=== PATIENT | female | born 1960 | race Caucasian/White ===

== ENCOUNTER 2023-05-19 15:56 | Outpatient (CLI) | payer OTHER, SELFPAY | END 2023-05-19 15:57 | disposition home or self-care (01) | PROVIDERS: PCP Family Medicine; Visit Provider Family Medicine | DX: Z01.419 Encounter for gynecological examination (general) (routine) without abnormal findings (principal); I10 Essential (primary) hypertension; R73.03 Prediabetes; R53.83 Other fatigue; E66.9 Obesity, unspecified; Z13.6 Encounter for screening for cardiovascular disorders | CPT/HCPCS: 80053; 80061; 84443 ==

== ENCOUNTER 2023-05-27 09:38 | Outpatient (CLI) | payer OTHER, SELFPAY ==
--- NOTE | 2023-05-27 09:45 | CRLHL7_ITS ---
For Patients: As a result of the Century Cures Act, medical imaging exams and procedure reports are released immediately into your electronic medical record. You may view this report before your referring provider. If you have questions, please contact your health care provider. BILATERAL SCREENING MAMMOGRAM WITH COMPUTER-AIDED DETECTION AND TOMOSYNTHESIS TECHNIQUE: CC and MLO views were obtained. These mammographic images have been obtained using full-field digital technique. These mammographic images were interpreted with the benefit of computer-aided detection. Breast Tomosynthesis was used in this interpretation. COMPARISON FILM: 04/23/22. FINDINGS: There are scattered areas of fibroglandular density IMPRESSION: There is no radiographic evidence for malignancy. ASSESSMENT: BI-RADS Category 1: Negative RECOMMENDATION: Routine screening mammogram in 1 year. A lay language report of this examination will be provided to the patient. Scott Garnett M.D. Diagnostic Radiologist [email or web address] ANSELMO/Dictated by: Scott Garnett MD @ 05/31/2023 9:13:00 AM (Electronically Signed)
== END 2023-05-27 09:39 | disposition home or self-care (01) ==
LOC: MAMMO 09:39
PROVIDERS: PCP Family Medicine; Visit Provider Physician Assistant
DX: Z12.31 Encounter for screening mammogram for malignant neoplasm of breast (principal)
CPT/HCPCS: 77063; 77067

== ENCOUNTER 2023-06-15 20:59 | Outpatient (CLI) | payer OTHER, SELFPAY ==
--- OUTSIDE RECORDS SUMMARY | 2023-06-15 21:01 | XMS_ITS | Encounter Summary ---
Author Name Unknown Organization [facility] Address [address] [place] [address] Care Team Providers Care Trolley Operator Name Role Phone Pcp, Pt Declines MD Primary Care Provider [phone] Reason for Visit * Procedure/Equipment (Routine) - Incomplete Specialty Diagnoses / Procedures Referred By Shauna agrawal Referred To Contact Procedures Foreign Image(S) XR Knee Rt Provider, Foreign Images [address] [place] [address] Referral ID Status Reason Start Date Expiration Date V isits Requested Visits Authorized [id number] Incomplete 05/06/2023 08/04/2024 1 1 Encounter Details Date Type Department Care Team Description 03/15/2023 Ancillary Procedure [facility] [address] [place] [address] Provider, Foreign Images [address] [place] [address] Social History Tobacco Use Types Packs/Day Years Used Date Smoking Tobacco: Never Alcohol Use Standard Drinks/Week Comments Yes 6 (1 standard drink = 0.6 oz pur e alcohol) Sex and Gender Information Value Date Recorded Sex Assigned at Not on file Gender Identity Not on file Sexual Orientation Not on file documented as of this encounter Plan of Treatment Not on file documented as of this encounter Procedures Procedure Name Priority Date/Time Associated Diagnosis Comments FOREIGN IMAGE(S) XR KNEE RT Routine 03/15/2023 12:00 AM CDT documented in this encounter Results * Foreign Image(S) XR Knee Rt (03/15/2023 12:00 AM CDT) Narrative POCT - 05/06/2023 10:29 AM EXPERIENCE DESIGN DIRECTOR These outside images have been uploaded into PACS. If the results were provided, they will be located in the patient's chart under the Media or Imaging tab. Foreign Images Provider RAD NON-REPORTAB LES POCT documented in this encounter Visit Diagnoses Not on filedocumented in this encounter Care Teams Trolley Operator Relationship Specialty Start Date End Date Pcp, [place] [address] PCP - General 12/05/19 05/04/23 documented as of this encounter
--- OUTSIDE RECORDS SUMMARY | 2023-06-15 21:01 | XMS_ITS | Clinical Summary ---
Author Name Unknown Organization [facility] Address [address] [place] [address] Care Team Providers Care Regional Economic Liaison Name Role Phone Clinician, Not Found MD Primary Care Provider Un available Source Comments You are receiving this document as you are listed as the primary care provider,follow-up provider, or the patient has been referred to you for consultation.This is in compliance with the Medicare and[facility] EHR Incentive Program,which states Providers who transition their patient to another setting of careor provider of care or refers their patient to another provider of care shouldprovide summary care record for each transition of care or referral. [facility] Allergies Active Allergy Reactions Criticality Noted Date Comments Codeine 11/29/2019 Erythromycin Hives High 11/29/2019 Medications Medication Sig Dispensed Refills Start Date End Date Status citalopram (CELEXA) 20 MG tablet 30 mg. 0 09/11/2019 Active meclizine (ANTIVERT) 25 MG tablet Take 25 mg by mouth three times a day as needed. 0 10/09/2019 Active ondansetron (ZOFRAN) 4 MG tablet Take 4 mg by mouth every 8 hours as needed. for nausea 0 10/09/2019 Active gabapentin (NEURONTIN) 100 MG capsule Take by mouth. 0 02/08/2022 Active Active Problems No known active problems Encounters Date Type Department Care Team Description 06/10/2023 1:00 PM OYSTER SORTER Ancillary Procedure [place] [facility] [place] [address] [address] [address] [place] [address] Lubna Penny MD Left knee pain, unspecified chronicity 06/10/2023 12:40 PM OYSTER SORTER Office Visit [facility] [address] [place] [address] Lubna Penny MD Patellofemoral arthritis (Primary Dx); Left knee pain, unspecified chronicity 03/15/2023 Ancillary Procedure Radiology PACS [address] [place] [address] Provider, Foreign Images from Last 3 Months Social History Tobacco Use Types Packs/Day Years Used Date Smoking Tobacco: Never Alcohol Use Standard Drinks/Week Comments Yes 6 (1 standard drink = 0.6 oz pur e alcohol) Sex and Gender Information Value Date Recorded Sex Assigned at Not on file Gender Identity Not on file Sexual Orientation Not on file Last Filed Vital Signs Vital Sign Reading Time Taken Comments Blood Pressure - - Pulse - - Temperature 36.8 ??C (98.3 ??F) 11/29/2019 3:53 PM CD T Respiratory Rate - - Oxygen Saturation - - Inhaled Oxygen Concentration - - Weight 103.9 kg (229 lb) 06/10/2023 1:07 PM OYSTER SORTER Height 170.2 cm (5' 7) 06/10/2023 1:07 PM OYSTER SORTER Body Mass Index 35.87 06/10/2023 1:07 PM OYSTER SORTER Plan of Treatment Health Maintenance Due Date Last Done Comments Cervical Cancer Screening Due 1962 Colon Cancer Screening Plan Due 1962 Diabetes Screening- (based on age and BMI) 1962 Hep C Screening (Preventive Services) 1960 Mammogram 1962 COVID-19 Vaccine (#1) 04/26/1963 HIV Screening (Preventive Services) 1978 Adult Preventive Visit 1980 Cholesterol 10/25/2007 DTaP/Tdap/Td (3 - Tdap) 01/06/2027 01/07/20 17, 12/21/2006, 11/22/1997 Zoster/Shingles Completed 03/12/2022, 12/10/2021 Influenza Completed 05/19/2023, 12/2021, 03/12/2022, Additional history exists HepA Aged Out No longer eligi ble based on patient's age to complete this topic HepB Aged Out No longer eligi ble based on patient's age to complete this topic Hib Aged Out No longer eligi ble based on patient's age to complete this topic IPV (Polio) Aged Out No longer eligi ble based on patient's age to complete this topic MCV4 Aged Out No longer eligi ble based on patient's age to complete this topic Pneumococcal Aged Out No longer eligi ble based on patient's age to complete this topic Procedures Procedure Name Priority Date/Time Associated Diagnosis Comments XR KNEE LT 3 VIEWS Routine 06/10/2023 1: 03 PM OYSTER SORTER Left knee pain, unspecified chronicity FOREIGN IMAGE(S) XR KNEE RT Routine 03/15/2023 12:00 AM CDT from Last 3 Months Results * XR Knee Lt 3 Views (06/10/2023 1:03 PM OYSTER SORTER) Anatomical Region Laterality Modality Lower Extremity, Knee Digital Ra diography 06/10/2023 12:5 9 PM OYSTER SORTER Impressions 06/10/2023 1:31 PM OYSTER SORTER COMPARISON: ??None. FINDINGS: ??Three views were obtained. Degenerative changes left knee with joint space narrowing greatest involving the patellofemoral compartment, notably the lateral facet. Mild chondrocalcinosis. Constellation of findings can be seen in the setting of CPPD arthropathy. Normal alignment. Narrative Procedure Note Onofre Stokes MD - 06/10/2023 IMPRESSION COMPARISON: None. FINDINGS: Three views were obtained. Degenerative changes left knee withjoint space narrowing greatest involving the patellofemoral compartment,notably the lateral facet. Mild chondrocalcinosis. Constellation offindings can be seen in the setting of CPPD arthropathy. Normalalignment. Lubna Penny MD RAD GD * Foreign Image(S) XR Knee Rt (03/15/2023 12:00 AM CDT) Narrative POCT - 05/06/2023 10:29 AM OYSTER SORTER These outside images have been uploaded into PACS. If the results were provided, they will be located in the patient's chart under the Media or Imaging tab. Foreign Images Provider RAD NON-REPORTAB LES POCT from Last 3 Months Care Teams Regional Economic Liaison Relationship Specialty Start Date End Date Clinician, Not Found, [place] [address] PCP - General 05/05/23
--- OUTSIDE RECORDS SUMMARY | 2023-06-15 21:01 | XMS_ITS | Encounter Summary ---
Author Name Unknown Organization [facility] Address [address] [place] [address] Care Team Providers Care Rehabilitation Coordinator Name Role Phone Clinician, Not Found MD Primary Care Provider Un available Reason for Visit * Procedure/Equipment (Routine) - Incomplete Specialty Diagnoses / Procedures Referred By Shauna agrawal Referred To Contact Diagnoses Left knee pain, unspecified chronicity Procedures XR Knee Lt 3 [place] [address] [place] [address] Referral ID Status Reason Start Date Expiration Date V isits Requested Visits Authorized [id number] Incomplete 06/10/2023 09/08/2024 1 1 Encounter Details Date Type Department Care Team Description 06/10/2023 1:00 PM INSTITUTIONAL CUSTODIAN Ancillary Procedure [place] [facility] [place] [address] [address] [address] [place] [id number] [place] [address] [place] [address] Left knee pain, unspecified chronicity Social History Tobacco Use Types Packs/Day Years [...] 3 VIEWS Routine 06/10/2023 1: 03 PM INSTITUTIONAL CUSTODIAN Left knee pain, unspecified chronicity documented in this encounter Results * XR Knee Lt 3 Views (06/10/2023 1:03 PM INSTITUTIONAL CUSTODIAN) Anatomical Region Laterality Modality Lower Extremity, Knee Digital Ra diography 06/10/2023 12:5 9 PM INSTITUTIONAL CUSTODIAN Impressions 06/10/2023 1:31 PM INSTITUTIONAL CUSTODIAN COMPARISON: ??None. FINDINGS: ??Three views were obtained. [...] arthropathy. Normalalignment. Lubna Penny MD RAD GD documented in this encounter Visit Diagnoses Diagnosis Left knee pain, unspecified chronicity documented in this encounter Care Teams Rehabilitation Coordinator Relationship Specialty Start Date End Date Clinician, Not Found, [place] [address] PCP - General 05/05/23 documented as of this encounter
--- OUTSIDE RECORDS SUMMARY | 2023-06-15 21:01 | XMS_ITS | Encounter Summary ---
Author Name Unknown Organization [facility] Address [address] [place] [address] Care Team Providers Care Manager Configuration Name Role Phone Clinician, Not Found MD Primary Care Provider Un available Reason for Referral * (Routine) - New Request Specialty Diagnoses / Procedures Referred By Contac t Referred To Contact Diagnoses Patellofemoral arthritis Procedures Triamcinolone Acet Inj Nos: (per 10 mg) [place] [address] [place] [address] Referral ID Status Reason Start Date Expiration Date V isits Requested Visits Authorized [id number] New Request 06/12/2023 09/10/2024 1 1 ICAL PRODUCT SPECIALIST * Procedure/Equipment (Routine) - Incomplete Specialty Diagnoses / Procedures Referred By Contac t Referred To Contact Diagnoses Left knee pain, unspecified chronicity Procedures XR Knee [place] [address] [place] [address] Referral ID Status Reason Start Date Expiration Date V isits Requested Visits Authorized [id number] Incomplete 06/10/2023 09/08/2024 1 1 ICAL PRODUCT SPECIALIST Reason for Visit * Reason Comments Knee Pain or Injury * Consult/Transfer Care (Routine) - New Request Specialty Diagnoses / Procedures Referred By Contac t Referred To Contact Orthopedics Diagnoses Pain in right knee Zaki Hendrix MD [facility] [address] [place] [address] [facility] [address] [facility] [place] [address] Referral ID Status Reason Start Date Expiration Date V isits Requested Visits Authorized [id number] New Request 05/05/2023 08/03/2024 1 1 Encounter Details Date Type Department Care Team Description 06/10/2023 12:40 PM CLINICAL PRODUCT SPECIALIST Office Visit [facility] [address] [place] [phone] [place] [address] [place] [address] Patellofemoral arthritis (Primary Dx); Left knee pain, unspecified chronicity Social History Tobacco Use Types Packs/Day Years Used Date Smoking Tobacco: Never Alcohol Use Standard Drinks/Week Comments Yes 6 (1 standard drink = 0.6 oz pur e alcohol) Sex and Gender Information Value Date Recorded Sex Assigned at Not on file Gender Identity Not on file Sexual Orientation Not on file documented as of this encounter Last Filed Vital Signs Vital Sign Reading Time Taken Comments Blood Pressure - - Pulse - - Temperature - - Respiratory Rate - - Oxygen Saturation - - Inhaled Oxygen Concentration - - Weight 103.9 kg (229 lb) 06/10/2023 1:07 PM CLINICAL PRODUCT SPECIALIST Height 170.2 cm (5' 7) 06/10/2023 1:07 PM CLINICAL PRODUCT SPECIALIST Body Mass Index 35.87 06/10/2023 1:07 PM CLINICAL PRODUCT SPECIALIST documented in this encounter Patient Instructions * Patient Instructions* Hever Spears, OA - 06/10/2023 12:40 PM CLINICAL PRODUCT SPECIALIST Thank you for choosing [facility] for your health care visit today. Lubna Penny MD Orthopedic Surgeon Lower Extremity [facility] Injection(s): The bilateral knee was injected with Kenalog-40 and lidocaine. You've just had a steroid (cortisone) injection: Steroid injections are among the most frequently used treatments in orthopedics. Steroid injectionsare used for a wide range of conditions from arthritis, to bursitis, to tennis elbow, etc. The two most common side-effects of steroid shots called ???steroid flare??? and ???steroid flush. Steroid flare can cause an increase in symptoms in the first 24-48 hours after a steroid injection.This will usually subside within a few days, and is a cause from the additional fluid in your joint, and the trauma to the joint lining from the injection. This pain usually subsides quickly and can be aided with an ice pack and over the counter anti-inflammatory medication. Steroid flush is a flushing sensation and redness of their face. This reaction is more common in women, but can occur in men as well, and is seen into up to 15 percent of patients. This can begin within a few hours of the injection and may last for a few days. It is not dangerous, and will resolve itself. Diabetic patients also can have their blood sugar levels affected. Patients with diabetes should carefully monitor their blood sugar as steroid can cause a temporary rise in their levels. Patients taking insulin should be especially careful, checking their blood sugar often and adjusting the insulin doses, if necessary. Steroid injections can only be repeated every 3 or 4 months. For some conditions there may also be a limited total number of times it is safe to repeat an injection. RISKS: Infection Whenever there is a break in the skin, like when a needle is used to administer steroid, there is achance of infection this is very unlikely to happen, usually would occur days after the injection. Signs and symptoms to watch for: fever, streaking redness, pus, drainage, foul odor, localized redness that continues to get worse, come to the office if symptoms are recognized during business hours, or proceed to the emergency room if symptoms are recognized after office hours. Skin Pigment Changes Patients should also be aware that steroid may cause skin around the injection site to lighten. This is not harmful or long lasting. Loss of Fatty Tissue This is one reason we limit the number of steroid injections administered. High doses of steroid can have detrimental effects on some tissues in the body, though due to the dosage we use the risk is extremely rare. When injected into fatty tissue, steroid can lead to a problem called fat atrophy. Fat atrophy causes loss of fatty tissue, which can lead to dimpling of the skin or the thinning out of fat. Skin will feel thin. Patients who get steroid injections in the heel to treat plantar fasciitis may find walking painful as fat that usually cushions their steps may thin out. Tendon Rupture Steroid can also cause weakening of tendons. This is one reason to limit the number of steroid injections administered. RESTRICTIONS: Avoid vigorous activity for the next 24 hours. Avoid submersion for next 24 hours; ok to shower. Advanced Imaging Scheduling: To schedule advanced imaging including MRI's, CT Scans, Ultrasounds and Fluoroscopic guided injections at a [facility] location please call [phone]. Medication Requests: Prescriptions are not filled on weekends or on weekdays after 3:00 PM. For all medication refills: Request a refill using [employer] or contact your pharmacy. [employer] [address] [place] [address] (Phone) Email: [email or web address] What is Know Your Cost? Know Your Cost is a service for patients and patient/members to call and receive personalized cost information and estimates across our care group. The phone number is (COST) Tuesday - Tuesday 8 AM to 5 PM Release of Information: Radiology/Imaging Health Information Management [address] [address] [place] [address] (Phone) [phone] (Phone) [employer] ICAL PRODUCT SPECIALIST documented in this encounter Progress Notes * Lubna Penny MD - 06/10/2023 12:40 PM CST [facility], Orthopaedic Surgery, Arthritis, Hip and Knee Replacement Gray Roland Age: 62 y.o. Date of : 1960 Requesting physician: Zaki Hendrix History of Present Illness: Gray Roland is a 62 y.o. year old female who presents today for evaluation and management of bilateral knee pain. The right side and left side are equally affected. She has been dealing with thisdiscomfort for at least 20 years. She has long known that she has osteoarthritis. She rates her pain 3-8/10. She finds that stairs are very difficult. She can not squat. It is hard to get in and out of her car. Flat walking tends to be okay. 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 To date, she is managed her pain with [id number] anti-inflammatory medications, Tylenol, herbal supplements, heat, ice. She has not had any previous injections. Of note, she did have a recent fall during which she landed primarily on the left knee and that seems to have aggravated that side. Past Medical History: There is no problem list on file for this patient. History reviewed. No pertinent past medical history. The patient has no history of blood clot (DVT/PE), bleeding complications, and anesthetic complications. Also see scanned health assessment forms. Past Surgical History: History reviewed. No pertinent surgical history. Social History: Social History Socioeconomic History Marital status: Spouse name: Not on file Number of children: Not on file Years of education: Not on file Highest education level: Not on file Occupational History Not on file Tobacco Use Smoking status: Never Smokeless tobacco: Not on file Vaping Use Vaping Use: Never used Substance and Sexual Activity Alcohol use: Yes Alcohol/week: 6.0 standard drinks of alcohol Types: 6 Standard drinks or equivalent per week Drug use: Not Currently Sexual activity: Not on file Other Topics Concern Not on file Social History Narrative Not on file Social Determinants of Health Financial Resource Strain: Not on file Food Insecurity: Not on file Transportation Needs: Not on file Intimate Partner Violence: Not on file Housing Stability: Not on file Family History: History reviewed. No pertinent family history. Medications: citalopram (CELEXA) 20 MG tablet, 30 mg., Disp: , Rfl: gabapentin (NEURONTIN) 100 MG capsule, Take by mouth., Disp: , Rfl: meclizine (ANTIVERT) 25 MG tablet, Take 25 mg by mouth three times a day as needed., Disp: , Rfl: ondansetron (ZOFRAN) 4 MG tablet, Take 4 mg by mouth every 8 hours as needed. for nausea, Disp: , Rfl: No current facility-administered medications on file as of 06/10/2023. Physical Exam: EXAMINATION pertinent findings: VITAL SIGNS: Height 1.702 m (5' 7), weight 103.9 kg (229 lb). Estimated body mass index is 35.87 kg/m?? as calculated from the following: Height as of this encounter: 1.702 m (5' 7). Weight as of this encounter: 103.9 kg (229 lb). RESP: non labored breathing ABD: benign SKIN: grossly normal LYMPHATIC: grossly normal NEURO: grossly normal VASCULAR: satisfactory perfusion of all extremities MUSCULOSKELETAL: Gait: patient walks with normal gait. Bilateral painful knees Overall limb alignment is: Normal Effusion or swelling of the knee: Left knee with moderate effusion, right knee with mild effusion Tenderness to palpation: No significant tenderness to palpation of the joint line ROM: 0 to 120 Pain with knee ROM: None apparent MCL stability: Stable Lateral Stability: Stable Pain with passive full hip range of motion: None Prior surgical incision: None Data: Imaging: Three views of the left knee obtained today. No evidence of acute injury. Neutral alignment. Medialand lateral joint spaces appear well preserved on the standing x-rays, though there are some marginal osteophytes. On sunrise view there is severe narrowing of the patellofemoral joint with cystic, sclerotic, and osteophytic changes consistent with severe patellofemoral arthritis. X-rays of the right knee from 03/15/23 also reviewed. Again no evidence of acute injury. Neutral alignment. Medial and lateral joint spaces are well-preserved with some marginal osteophytes. [place] view similarly demonstrates severe patellofemoral arthritis with cystic, sclerotic, and osteophytic changes. Assessment and Plan: Assessment: Bilateral knee arthritis with patellofemoral joint most severely affected Plan: We discussed with the patient does have severe patellofemoral arthritis and is a candidate for total knee arthroplasty whenever she gets to the point where she feels like her knee pain is severe enough to undergo surgery. However, since she has not tried steroid injections, I recommended these. Patient has also heard good things about viscosupplementation so we discussed the pros and cons of this type of injection. Viscosupplementation is certainly an option in the future if she wishes to try it. However, she did take my recommendation to try steroid injection 1st. Steroid can be repeated as often as every 3-4 months. Pending her results from the steroid injection, we can make a decision about trying viscosupplementation. She should follow up as needed. Date: 06/10/2023 Procedure: bilateral knee injections. We reviewed the risks, benefits and alternative to injection of the knees. Patient gave verbal consent. The patient's first knee was prepped with alcohol swab. A mixture of 6cc 1% lidocaine, 3cc 0.5%marcaine, and 1 cc of triamcinolone was injected without complications. The patient tolerated the injection well. This was then repeated on the contralateral side and was again well tolerated. Lubna Penny M.D. [email or web address] [phone](pager) ICAL PRODUCT SPECIALIST documented in this encounter Plan of Treatment Not on file documented as of this encounter Results * XR Knee Lt 3 Views (06/10/2023 1:03 PM CLINICAL PRODUCT SPECIALIST) Anatomical Region Laterality Modality Lower Extremity, Knee Digital Ra diography 06/10/2023 12:5 9 PM CLINICAL PRODUCT SPECIALIST Impressions 06/10/2023 1:31 PM CLINICAL PRODUCT SPECIALIST COMPARISON: ??None. FINDINGS: ??Three views were obtained. [...] CPPD arthropathy. Normalalignment. Lubna Penny MD RAD documented in this encounter Visit Diagnoses Diagnosis Patellofemoral arthritis- Primary Unspecified arthropathy, lower leg Left knee pain, unspecified chronicity Left knee pain, unspecified chronicity documented in this encounter Care Teams Manager Configuration Relationship Specialty Start Date End Date Clinician, Not Found, [place] [address] PCP - General 05/05/23 documented as of this encounter
--- OUTSIDE RECORDS SUMMARY | 2023-06-15 21:01 | XMS_ITS | Clinical Summary ---
Author Name Unknown Organization [facility] Address [address] [place] [address] Care Team Providers Care Acid Tank Liner Name Role Phone Clmeentina Ragland MD Primary Care Provider + [phone] Clementina Ragland MD Unavailable [phone] Allergies Active Allergy Reactions Criticality Noted Date Comments Codeine Other (See Comments) Low nightmares Erythromycin Hives Low Naproxen Unknown Low Ibuprofen is okay Medications Medication Sig Dispensed Refills Start Date End Date Status omeprazole (PRILOSEC) [address] capsuleIndications:G astroenteritis Take 1 capsule (40 mg) by mouth daily 30 capsule 0 03/05/2022 Active acetaminophen (TYLENOL) 500 MG tabletIndications:Ot her fatigue,Body aches Take 1-2 tablets (500-1,000 mg) by mouth every 6 hours as needed for mild pain 30 tablet 0 03/05/2022 Active tiZANidine (ZANAFLEX) 4 MG tablet Take 4 mg by mouth 3 times daily as needed for muscle spasms 0 Active budesonide-formotero l (SYMBICORT) 80-4.5 MCG/ACT Inhaler Inhale 2 puffs into the lungs 2 times daily 0 Active albuterol (VENTOLIN HFA) 108 (90 Base) MCG/ACT inhaler Inhale 2 puffs into the lungs every 6 hours 0 Active gabapentin (NEURONTIN) 100 MG capsuleIndications:R ecurrent major depressive disorder, in full remission (H24) TAKE ONE CAPSULE BY MOUTH TWICE A DAY 180 capsule 3 07/13/2022 Active citalopram (CELEXA) 20 MG tabletIndications:Re current major depressive disorder, in full remission (H24) Take 1 tablet (20 mg) by mouth daily 90 tablet 3 07/13/2022 Active Active Problems Problem Noted Date Diagnosed Date Cervical high risk HPV (human papillomavirus) te st positive 04/14/2022 Overview: 04/06/22 NIL pap, + HR HPV (not 16 or 18). Plan cotest in 1 year due by 04/06/23 04/14/22 LM on VM. [employer] message sent. Pt read message 03/15/23 Reminder mychart 04/14/23 Reminder call-LM 05/17/23 Lost to follow-up for pap tracking Obesity (BMI 30-39.9) 04/06/2022 Chemical-induced asthma 04/06/2022 Overview: after significant weed killer exposure; now more environmentally triggered allergies MDD (major depressive disorder) 04/06/2022 Chronic pain of multiple joints 04/06/2022 Overview: well-controlled with low dose gabapentin bid Acid reflux disease 04/06/2022 Impaired fasting glucose 04/06/2022 Morbid obesity 04/06/2022 Immunizations Name Administration Dates Next Due COVID-19 Bivalent 12+ (Pfizer) 04/06/2022 COVID-19 MONOVALENT 12+ (Pfizer) 04/02/2021,07/07,06/26/2020 COVID-19 Monovalent 12+ (Pfizer 2021) 12/10/2021 Flu, Unspecified 04/05/1997 Hepatitis B, Adult 10/26/2005,03/30/2005, 005 Influenza (IIV3) PF 04/16/2008,04/04/2007,2000 Influenza Intranasal Vaccine 01/20/2012,02/25/20 11,04/16/2010 Influenza Vaccine 18-64 (Flublok) 03/12/2022,01/2021 Influenza Vaccine >6 months,quad, PF 05/26/2015 MMR 10/01/2002 TDAP (Adacel,Boostrix) 12/21/2006 Td (Adult), Adsorbed 01/06/2017,11/22/1997 Zoster recombinant adjuvanted (SHINGRIX) 022,12/10/2021 Family History Medical History Relation Comments Diabetes Type 2 Brother Diabetes Type 2 Maternal Grandmother Breast Cancer Mother post-menopausal Hyperlipidemia Mother Hypertension Mother Pancreatic Cancer Mother Pancreatitis Mother chronic Hypertension Paternal Grandfather Hypertension Paternal Grandmother Cerebrovascular Disease No family hx of Colon Cancer No family hx of Coronary Artery Disease Early Onset No family hx of Myocardial Infarction No family hx of Ovarian Cancer No family hx of Relation Status Comments Brother Father Maternal Grandmother Mother Paternal Grandfather Paternal Grandmother Social History Tobacco Use Types Packs/Day Years Used Date Smoking Tobacco: Never Smokeless Tobacco: Never Tobacco Cessation:Counseling Given: Not Answered Alcohol Use Standard Drinks/Week Comments Yes 0 (1 standard drink = 0.6 oz pur e alcohol) 6 drinks/month PHQ-2 Answer Date Recorded PHQ-2 Score 0 04/06/2022 Adolescent Education Answer Date Record ed Getting School Help Needed Not on file 02/26 Sex and Gender Information Value Date Recorded Sex Assigned at Not on file Gender Identity Not on file Sexual Orientation Not on file Last Filed Vital Signs Vital Sign Reading Time Taken Comments Blood Pressure 130/76 04/06/2022 2:40 PM CDT Pulse 100 04/06/2022 2:40 PM CDT Temperature 36.7 ??C (98 ??F) 03/05/2022 12:58 PM CDT Respiratory Rate 16 03/05/2022 12:58 PM CDT Oxygen Saturation 97% 04/06/2022 2:40 PM CDT Inhaled Oxygen Concentration - - Weight 110.9 kg (244 lb 8 oz) 04/06/2022 2:40 PM CDT Height 167.6 cm (5' 6) 04/06/2022 2:40 PM CDT Body Mass Index 39.46 04/06/2022 2:40 PM CDT Plan of Treatment Health Maintenance Due Date Last Done Comments CT COLONOGRAPHY 1960 DEPRESSION ACTION PLAN 1960 FIT 1960 FLEX SIG 1960 PHQ-9 1960 sDNA (Cologuard) 1960 COLONOSCOPY 1972 LIPID 10/25/2007 RSV VACCINE ( & 60+) (1 - 1-dose 60+ series) 2022 COVID-19 Vaccine (2022-24 season) 2023 04/06/2022, 12/10/2021, 04/02/2021, Additional history exists INFLUENZA VACCINE (#1) 2023 2, 03/12/2022, 03/13/2021, Additional history exists ANNUAL REVIEW OF HM ORDERS 04/06/2023 04/06/2022 HPV FOLLOW-UP 04/06/2023 04/06/2022 PAP FOLLOW-UP 04/06/2023 04/06/2022 YEARLY PREVENTIVE VISIT 04/06/2023 04/06/2022 MAMMO SCREENING 04/23/2024 04/23/2022, 0807/2018, 09/01/2017 DTAP/TDAP/TD IMMUNIZATION (3 - Td or Tdap) 01/06/2027 01/06/2017, 12/21/2006, 11/22/1997 COLORECTAL CANCER SCREENING 06/06/2027 Postponed from 1972 (Other) ZOSTER IMMUNIZATION Completed 03/12/2022, PAP Discontinued 04/06/2022 ADVANCE CARE PLANNING Discontinued HEPATITIS C SCREENING Discontinued HIV SCREENING Discontinued HPV IMMUNIZATION Aged Out No longer e ligible based on patient's age to complete this topic IPV IMMUNIZATION Aged Out No longer e ligible based on patient's age to complete this topic MENINGITIS IMMUNIZATION Aged Out No l onger eligible based on patient's age to complete this topic Pneumococcal Vaccine: Pediatrics (0 to 5 Years) and At-Risk Patients (6 to 64 Years) Aged Out No longer eligible based on patient's age to complete this topic RSV MONOCLONAL ANTIBODY Aged Out No l onger eligible based on patient's age to complete this topic Care Teams Acid Tank Liner Relationship Specialty Start Date End Date Clementina Ragland MD [address] [place] [id number] PCP - General Internal Medicine 04/06/22 Clementina Ragland MD [address] [place] [id number] Assigned PCP 03/10/22
--- OUTSIDE RECORDS SUMMARY | 2023-06-15 21:02 | XMS_ITS | Encounter Summary ---
Author Name Unknown Organization [facility] Address [address] [place] [address] Care Team Providers Care Civil Celebrant Name Role Phone Clementina Ragland MD Primary Care Provider + [phone] Clementina Ragland MD Unavailable [phone] Encounter Details Date Type Department Care Team ([facility] st Contact Info) Description 04/08/2022 [facility] Medical Advice [facility] [address] [phone] Clementina Ragland MD [address] [place] [address] Social History Tobacco Use Types Packs/Day Years Used Date Smoking Tobacco: Never Smokeless Tobacco: Never Alcohol Use Standard Drinks/Week Comments Yes 0 (1 standard drink = 0.6 oz pur e alcohol) 6 drinks/month PHQ-2 Answer Date Recorded PHQ-2 Score 0 04/06/2022 Sex and Gender Information Value Date Recorded Sex Assigned at Not on file Gender Identity Not on file Sexual Orientation Not on file COVID-19 Exposure Response Date Recorded In the last 10 days, have yo u been in contact with someone who was confirmed or suspected to have Coronavirus/COVID-19? No / Unsure 04/06/2022 2:30 PM CDT documented as of this encounter Plan of Treatment Not on file documented as of this encounter Visit Diagnoses Not on filedocumented in this encounter Care Teams Civil Celebrant Relationship Specialty Start Date End Date Clementina Ragland MD [address] [place] [address] PCP - General Internal Medicine 04/06/22 Clementina Ragland MD [address] [place] [address] Assigned PCP 03/10/22 documented as of this encounter
--- OUTSIDE RECORDS SUMMARY | 2023-06-15 21:02 | XMS_ITS | Referral Summary ---
Author Name Unknown Organization [facility] Address [address] [place] [address] Care Team Providers Care Breaker Machine Operator Name Role Phone Clementina Ragland MD Primary Care Provider + [phone] Clementina Ragland MD Unavailable [phone] Allergies Active Allergy Reactions Criticality Noted Date [...] due by 04/06/23 04/14/22 LM on VM. [employer] message sent. Pt read message 03/15/23 Reminder [...] Adsorbed 01/06/2017,11/22/1997 Zoster recombinant adjuvanted (SHINGRIX) 022,12/10/2021 Social History Tobacco Use Types Packs/Day Years [...] 04/06/2022 2:40 PM CDT Plan of Treatment Not on file Care Teams Breaker Machine Operator Relationship Specialty Start Date End Date Clementina Ragland MD [address] [place] [id number] PCP - General Internal Medicine 04/06/22 Clementina Ragland MD [address] [place] [address] Assigned PCP 03/10/22
--- OUTSIDE RECORDS SUMMARY | 2023-06-15 21:02 | XMS_ITS | Encounter Summary ---
Author Name Unknown Organization [facility] Address [address] [place] [address] Care Team Providers Care Woodworker Helper Name Role Phone Clementina Ragland MD Primary Care Provider + [phone] Clementina Ragland MD Unavailable [phone] Reason for Visit * Reason Onset Date Comments Refill Request 07/12/2022 Encounter Details Date Type Department Care Team (Late st Contact Info) Description 07/12/2022 MyC Refill [address] [phone] Clementina Ragland MD [address] [place] [address] Refill Request Social History Tobacco Use Types Packs/Day Years [...] on file documented as of this encounter Miscellaneous Notes * Telephone Encounter - Angella Hussein RN - 07/13/2022 11:34 AM CST Duplicate request, refused. Angella Ball, RN, BSN, PHN [facility] BRIDGE TENDER documented in this encounter Plan of Treatment Not on file documented as of this encounter Visit Diagnoses Not on filedocumented in this encounter Care Teams Woodworker Helper Relationship Specialty Start Date End Date Clementina Ragland MD [address] [place] [id number] PCP - General Internal Medicine 04/06/22 Clementina Ragland MD [address] [place] [address] Assigned PCP 03/10/22 documented as of this encounter
--- OUTSIDE RECORDS SUMMARY | 2023-06-15 21:02 | XMS_ITS | Encounter Summary ---
Author Name Unknown Organization [facility] Address [address] [place] [address] Care Team Providers Care Insurance Advisor Name Role Phone Clementina Ragland MD Primary Care Provider + [phone] Clementina Ragland MD Unavailable [phone] Reason for Visit * Reason Onset Date Comments Refill Request 07/12/2022 gabapentin (NEUR ONTIN) 100 MG capsule, citalopram (CELEXA) 20 MG tablet Encounter Details Date Type Department Care Team (Late st Contact Info) Description 07/12/[address] [phone] Clementina Ragland MD [address] [place] [phone] Refill Request (gabapentin (NEURONTIN) 100 MG capsule, citalopram (CELEXA) 20 MG tablet) Social History Tobacco Use Types Packs/Day Years [...] documented as of this encounter Visit Diagnoses Diagnosis Recurrent major depressive disorder, in full remission (H24)- Primary documented in this encounter Care Teams Insurance Advisor Relationship Specialty Start Date End Date Clementina Ragland MD [address] [place] [address], [place] [address] PCP - General Internal Medicine 04/06/22 Clementina Ragland MD [address] [place] [address], [place] [address] Assigned PCP 03/10/22 documented as of this encounter
--- OUTSIDE RECORDS SUMMARY | 2023-06-15 21:02 | XMS_ITS | Clinical Summary ---
Author Name Unknown Organization [facility] Address [place], [place] [address] Care Team Providers Care Hand Clipper Name Role Phone Daisy Mcdermott NP Primary Care Provider Allergies Active Allergy Reactions Criticality Noted Date Comments Codeine Hallucinations 04/15/2020 Erythromycin Hives 04/15/2020 Naproxen *Unknown 04/15/2020 Medications Medication Sig Dispensed Refills Start Date End Date Status acetaminophen (TYLENOL EXTRA STRGTH) 500 mg tablet Take 500-1,000 mg by mouth. 0 03/05/2022 Active albuterol HFA (PRO-AIR; VENTOLIN; PROVENTIL) 90 mcg/actuation inhaler Inhale 2 Puffs by mouth every 6 hours. 0 Active gabapentin (NEURONTIN) 300 mg capsuleIndicati ons:Chronic midline low back pain without sciatica Take 1 Capsule (300 mg) by mouth two times daily. 180 Capsule 3 09/13/2022 Active tiZANidine (ZANAFLEX) 4 mg tabletIndicatio ns:Chronic midline low back pain without sciatica Take 1 tab twice daily as needed for back pain/muscle spasm 0 09/13/2022 Active citalopram (CELEXA) 20 mg tabletIndicatio ns:Depression, recurrent (HC) Take 1 Tablet (20 mg) by mouth every morning. 90 Tablet 3 02/17/2023 Active losartan (COZAAR) 50 mg tabletIndicatio ns:HTN (hypertension) Take 1 Tablet (50 mg) by mouth once daily. 90 Tablet 3 02/17/2023 Active HYDROcodone-vania taminophen (5-325 mg/tablet)Indic ations:Acute pain of right knee Take 1 Tablet by mouth every 4 hours if needed for Pain. Max acetaminophen dose: 4000 mg in 24 hrs. 15 Tablet 0 03/15/2023 Active gabapentin (NEURONTIN) 100 mg capsule TAKE ONE CAPSULE BY MOUTH TWICE A DAY - NEED APPOINTMENT FOR REFILLS 0 06/10/2022 4 Discontinue d(*Patient states no longer taking) omeprazole (PRILOSEC) 40 mg Delayed-Release capsuleIndicati ons:Chronic GERD Take 1 Capsule (40 mg) by mouth once daily before a meal. 90 Capsule 3 09/13/2022 4 Discontinue d(*Patient states no longer taking) Active Problems Problem Noted Date Diagnosed Date Headache syndrome 09/13/2022 Intracranial hypertension 09/13/2022 Encounters Date Type Department Care Team Description 06/15/2023 7:55 AM MANUAL WINDER Office Visit [facility] [address] [place] [address] Pooja Barriga, DO Occ Med (right elbow injury at work on 06/08/22. has been wearing a sling at work. pain with rotation of wrist. ) 06/15/2023 Travel 06/08/2023 3:50 PM MANUAL WINDER Ancillary Procedure [address] [phone] 06/08/2023 2:50 PM MANUAL WINDER Office Visit [facility] [address] [place] [phone] Minnie García NP Elbow Injury 06/08/2023 Travel 05/20/2023 Lab Requisition [facility] [phone] Hannah Hutton PA-C 05/06/2023 Telephone [facility] [address] [place] [phone] Daisy Mcdermott NP Screening 03/21/2023 8:00 AM CDT Office Visit [facility] [address] [place] [phone] Pina Barrientos MD Follow Up (Urgent care last week, needs work note to return to work after that visit, right knee pain.) 03/21/2023 Travel 03/18/2023 Telephone [facility] [address] [place] [phone] Daisy Mcdermott NP Form (/) 03/15/2023 2:50 PM CDT Ancillary Procedure [facility] [address] [place] [phone] 03/15/2023 12:45 PM CDT Office Visit [facility] [address] [place] [phone] Zaki Hendrix MD Knee Pain/problem (Bilat x 1 day Right is worse than left ) 03/15/2023 Travel from Last 3 Months Immunizations Name Administration Dates Next Due COVID-19 vaccine ([employer] NTech 30mcg/0.3mL) 12YO+ AMPARO-SUCROSE PF, MDV 12/10/2021 COVID-19 vaccine ([employer] NTech 30mcg/0.3mL) PF, MDV 04/02/2021,07/17/2020,06/26/2020 Hepatitis B (Adult) 10/26/2005,03/30/2005,2004 Influenza Virus, Unspecified 04/05/1997 Influenza, IIV3 (Age >=3 years) 04/16/2008,04/04,03/29/2001 Influenza, IIV4 03/12/2022,03/13/2021,05/26/2015 Influenza, Live, Intranasal Laiv3 01/20/2012,,04/16/2010 MMR 10/01/2002 Td (Age >=7 Years) 01/06/2017,11/22/1997 Tdap 12/21/2006 Zoster (Shingrix-RZV, recombinant) 03/12/2022, Social History Tobacco Use Types Packs/Day Years Used Date Smoking Tobacco: Never Smokeless Tobacco: Never Tobacco Cessation:Counseling Given: Not Answered Alcohol Use Standard Drinks/Week Comments Yes 3 (1 standard drink = 0.6 oz pur e alcohol) PHQ-2 Answer Date Recorded PHQ-2 TOTAL SCORE 0 08/16/2022 Social Connections Answer Date Recorded Frequency of Communication with Friends and Fami ly 0 03/15/2023 Alcohol Use Answer Date Recorded How often do you have a drink containing alcohol ? 1 08/16/2022 How many drinks containing a lcohol do you have on a typical day when you are drinking? 1 08/16/2022 How often do you have five or more drinks on one occasion? 1 08/16/2022 Financial Resource Strain Answer Date R ecorded Difficulty of Paying Living Expenses 2 03/15/2023 Difficulty of Paying Living Expenses 1 03/15/2023 Food Insecurity Answer Date Recorded Worried About Running Out of Food in the Last Ye ar 1 03/15/2023 Transportation Needs Answer Date Record ed Lack of Transportation (Medical) 1 03/15/2023 Housing Stability Answer Date Recorded Unable to Pay for Housing in the Last Year 1 03/15/2023 Sex and Gender Information Value Date Recorded Sex Assigned at Not on file Gender Identity Not on file Sexual Orientation Not on file Obstetrics History Last Filed Vital Signs Vital Sign Reading Time Taken Comments Blood Pressure 125/77 06/15/2023 7:58 AM MANUAL WINDER Pulse 80 06/15/2023 7:58 AM MANUAL WINDER Temperature 36.1 ??C (97 ??F) 06/08/2023 3:40 PM MANUAL WINDER Respiratory Rate 16 06/08/2023 3:40 PM MANUAL WINDER Oxygen Saturation 97% 06/15/2023 7:58 AM MANUAL WINDER Inhaled Oxygen Concentration - - Weight 103 kg (227 lb) 06/15/2023 7:58 AM MANUAL WINDER Height 170.2 cm (5' 7) 08/16/2022 1:09 PM CDT Body Mass Index 35.55 08/16/2022 1:09 PM CDT Plan of Treatment Upcoming Encounters Date Type Department Care Team (Late st Contact Info) Description 06/22/2023 2:25 PM MANUAL WINDER Office Visit [facility] [address] [place] [address] Pooja Barriga DO [address] [place] [address] Health Maintenance Due Date Last Done Comments HIV for age 15-65 1977 Hepatitis C screening for age 18-79 1980 Lipids for age 45-75 10/25/2007 Mammogram for age 45-75 06/20/2021 06/20/2020, 01/05 COVID-19 vaccine series ( - 2022-24 season) 2023 04/06/2022, 12/10/2021, 04/02/2021, Additional history exists Influenza for age 50-64 02/04/2023 03/12/20, 03/13/2021, 05/26/2015, Additional history exists BMI (ht and wt on same day) for age 18+ 08/17/2023 08/16/2022 Depression screening for age 12+ 08/18/2023 08/17/2022, 08/16/2022 Pap test for age 21-65 05/19/2026 05/19/2023, 2022 Tetanus booster 01/06/2027 01/06/2017, 12/04, 11/22/1997 Colonoscopy through age 75 09/14/2027 09/13/2017 Tdap Completed 12/21/2006 Zoster (shingles) series for age 50+ Completed 03/12/2022, 12/10/2021 Pneumococcal series for age 6-64 Aged Out No longer eligible based on patient's age to complete this topic Procedures Procedure Name Priority Date/Time Associated Diagnosis Comments XR ELBOW 3 VIEWS RIGHT STAT 06/08/2023 3:55 PM MANUAL WINDER Pain LAB TRACKING EVENT Routine 05/19/2023 12 :30 PM MANUAL WINDER TECH BRAZER TESTER THIN PREP PAP SCREEN IMAGED Routine 05/19/2023 12:00 PM MANUAL WINDER HPV THIN PREP Routine 05/19/2023 12:00 PM MANUAL WINDER XR KNEE 3 VIEWS RIGHT STAT 03/15/2023 2:58 PM CDT Acute pain of right knee from Last 3 Months Results * XR ELBOW 3 VIEWS RIGHT (06/08/2023 3:55 PM MANUAL WINDER) Anatomical Region Laterality Modality ELBOW R Computed Radiogr aphy 06/08/2023 4:10 PM MANUAL WINDER Narrative 06/08/2023 4:10 PM MANUAL WINDER For Patients: ??As a result of the Cures Act, medical imaging exams and procedure reports are released immediately into your electronic medical record. ??You may view this report before your referring provider. ??If you have questions, please contact your health care provider. Indication: Elbow pain Technique: Three views of the right elbow Comparison: None. Findings/Impression: No acute fracture or malalignment. No appreciable joint effusion. 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 No concerning soft tissue abnormalities. Dictated by Anders Desouza MD @ 06/08/2023 4:10:03 PM (Electronically Signed) Procedure Note Anders Desouza MD - 06/08/2023 For Patients: As a result of the Cures Act, medical imagingexams and procedure reports are released immediately into your electronicmedical record. You may view this report before your referring provider.If you have questions, please contact your health care provider. Indication: Elbow pain Technique: Three views of the right elbow Comparison: None. Findings/Impression: No acute fracture or malalignment. No appreciable joint effusion. 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 No concerning soft tissue abnormalities. Dictated by Anders Desouza MD @ 06/08/2023 4:10:03 PM (Electronically Signed) Chelo Stevenson NP GENERAL IMAGING * LAB TRACKING EVENT (05/19/2023 12:30 PM MANUAL WINDER) Other (Other) Client Collect / Unknown 05/19/2023 12:30 PM MANUAL WINDER 05/20/2023 3:33 PM MANUAL WINDER Hannah Hutton PA-C LAB BILL ONLY [facility] [address] [place] [address], * (ABNORMAL) TECH BRAZER TESTER THIN PREP PAP SCREEN IMAGED (05/19/2023 12:00 PM MANUAL WINDER) Case Report Gynecologic Cytology Report ? Case: [id number] ? Authorizing Provider: ??Fitzloff, Hannah L, PA-C ?Collected: ? 05/19/2023 1200 ? Ordering Location: ? [facility] ?Received: ?05/24/2023 1012 ? First Screen: ?Marlon Hidalgo ? Rescreen: ?Kreronald, Karol ? Pathologist: ? Morgan, Emily ? Miranda, ? Specimen: ?TECH BRAZER TESTER ThinPrep Vial Screening, Cervical ? 06/01/2023 3:10 PM MANUAL WINDER [facility] INTERPRETATION/ RESULT ATYPICAL SQUAMOUS CELLS OF UNDETERMINED SIGNIFICANCE (ASCUS)(A) (none) 06/01/2023 3:10 PM MANUAL WINDER [facility] R NON-NEOPLASTIC FINDING(S) Atrophy 06/01/2023 3:10 PM MANUAL WINDER [facility] SPECIMEN ADEQUACY Satisfactory for evaluation No endocervical component seen 06/01/2023 3:10 PM MANUAL WINDER [facility] HPV REQUEST HPV and PAP 06/01/2023 3:10 PM MANUAL WINDER [facility] Date of LMP 06/01/2023 3:10 PM MANUAL WINDER [facility] Comment:2017 Last Pap Date 04/06/2022 06/01/2023 3:10 PM MANUAL WINDER [facility] Last Pap Result NIL 3:10 PM [facility] Comment:HPV ?+ Abnormal Pap or Grandy Bx in last 5 years Yes 06/01/2023 3:10 PM MANUAL WINDER [facility] Menstrual Status Postmenopausal 06/01/2023 3:10 PM MANUAL WINDER [facility] Grandy Bx Done Today No 06/01/2023 3:10 PM MANUAL WINDER [facility] Additional Information 06/01/2023 3:10 PM [facility] Comment: Interpreted at [facility] - [address], [place] [address] Automated Review Successful 06/01/2023 3:10 PM MANUAL WINDER [facility] Comment:Specimen processed s uccessfully by automated parking meter attendant device, ThinPrep Imaging System, [employer] ANCILLARY TESTING TECH BRAZER TESTER HPV Ordered, Please see separate report 06/01/2023 3:10 PM MANUAL WINDER [facility] Note The pap test is a screening technique, not a diagnostic procedure. It is used primarily to screen for squamous cancers and precursor lesions. Published studies have shown that it is subject to both false negative and false positive results. The pap test should not be used as the sole means to diagnose or exclude pre-malignant and malignant lesions. 06/01/2023 3:10 PM MANUAL WINDER [facility] Other (Cervical) 05/19/2023 12:00 PM MANUAL WINDER 05/24/2023 10:12 AM MANUAL WINDER Hannah Hutton PA-C PATHOLOGY/CYTOLOGY Performing Organization Address [facility] Co de Phone Number [facility] [address] [place] [address], [place] * (ABNORMAL) HPV HIGH RISK (05/19/2023 12:00 PM MANUAL WINDER) TYPE 16 Negative Negative 05/25/2023 3:23 PM MANUAL WINDER [facility] TYPE 18 Negative Negative 05/25/2023 3:23 PM MANUAL WINDER [facility] OTHER HIGH RISK TYPES Positive(A) Negative 05/25/2023 3:23 PM MANUAL WINDER [facility] Other (Cervical) 05/19/2023 12:00 PM MANUAL WINDER 05/24/2023 10:12 AM MANUAL WINDER Narrative [facility] - 05/25/2023 3:23 PM MANUAL WINDER Specimen is positive for the DNA of any one of, or combination of, the following high risk HPV types: 31, 33, 35, 39, 45, 51, 52, 56, 58, 59, 66, 68. HPV types 16 and 18 DNA were undetectable or below the pre-set threshold. ? Methodology: Corby Mary 4800 HPV Test Hannah Hutton PA-C MICROBIOLOGY Performing Organization Address City/[facility]/ZIP Co de Phone Number [facility] [address] [place] [id number], [place] * XR KNEE 3 VIEWS RIGHT (03/15/2023 2:58 PM CDT) Anatomical Region Laterality Modality KNEES, KNEE R Computed Radiogr aphy 03/15/2023 3:20 PM CDT Narrative 03/15/2023 3:20 PM CDT For Patients: ??As a result of the Cures Act, medical imaging exams and procedure reports are released immediately into your electronic medical record. ??You may view this report before your referring provider. ??If you have questions, please contact your health care provider. Indication: Acute pain of right knee. Technique: Right knee 3 views. Comparison: None. Findings: Bones: Alignment is normal. No fractures or bone lesions. Joint spaces: Knee joint space is maintained. Severe arthritis in the patellofemoral joint. Multiple periarticular osteophytes. No joint effusion evident. Soft tissues: Soft tissue calcification is superior to the patella. Dictated by Dre Aquino MD @ 03/15/2023 3:20:45 PM (Electronically Signed) Procedure Note Dre Aquino MD - 03/15/2023 For Patients: As a result of the Cures Act, medical imagingexams and procedure reports are released immediately into your electronicmedical record. You may view this report before your referring provider.If you have questions, please contact your health care provider. Indication: Acute pain of right knee. Technique: Right knee 3 views. Comparison: None. Findings: Bones: Alignment is normal. No fractures or bone lesions. Joint spaces: Knee joint space is maintained. Severe arthritis in thepatellofemoral joint. Multiple periarticular osteophytes. No jointeffusion evident. Soft tissues: Soft tissue calcification is superior to the patella. Dictated by Dre Aquino MD @ 03/15/2023 3:20:45 PM (Electronically Signed) Zaki Hendrix MD GENERAL IMAGING from Last 3 Months Care Teams Hand Clipper Relationship Specialty Start Date End Date Daisy Mcdermott NP [address] [place] [address] JESSIKA TATE [address] PCP - General Nurse Practitioner - Family 09/21/22
--- NOTE | 2023-06-21 14:40 | W.PM.SLEEP ---
Sleep Study Details Details Interpreting Provider: Pedro Date of Sleep Study: 06/15/23 Sleep Study Details: STUDY TYPE:? Hospital based with CPAP titration ? BMI:? 35.2 ORDERING PROVIDER:? Kvng INDICATION:? Concerns about sleep apnea ? SLEEP SUMMARY:? Total sleep time 324 minutes, arousal index 17.6 RESPIRATORY SUMMARY:? Mean oxygen awake 93, asleep 92, minimum 78 4.2 minutes oxygen between 80 and 88% AHI 19.3, RDI 35.2 REM AHI 24. The there was no supine REM sleep all of the REM sleep was seen in the nonsupine position. CPAP titration was attempted up to a pressure of 9 decreasing AHI to 9.5 and including 50.5 minutes of REM stage sleep in the nonsupine position. This would be considered a partially successful titration PERIODIC LIMB MOVEMENTS OF SLEEP:? Pre treatment index 18.9, index with arousal 0.4 Post treatment index 18.2, index with arousal 0.6 CARDIAC:? Awake 88, asleep 78, PVCs were noted IMPRESSION:? Moderate to severe obstructive sleep apnea with an AHI of 19.3 an RDI of 35.2. CPAP titration a pressure of 9 in the nonsupine position decreased AHI to 9.5 and included a large amount of nonsupine REM stage sleep. There were frequent periodic limb movements but very few were associated with arousal RECOMMENDATION: Would recommend an auto set CPAP trial at a pressure of 5-17 with close follow-up. Weight loss is also recommended.
== END 2023-06-15 21:00 | disposition home or self-care (01) ==
LOC: SLEEP 21:00
PROVIDERS: PCP Family Medicine; Visit Provider Family Medicine
DX: G47.33 Obstructive sleep apnea (adult) (pediatric) (principal)
CPT/HCPCS: 95811

== ENCOUNTER 2024-07-02 08:48 | Outpatient (CLI) | payer OTHER, SELFPAY | END 2024-07-02 08:49 | disposition home or self-care (01) | LOC: NFLDREF 07-09 01:30 | PROVIDERS: PCP Family Medicine; Referring Provider Family Medicine; Visit Provider Family Medicine | DX: R73.03 Prediabetes (principal); I10 Essential (primary) hypertension; Z13.6 Encounter for screening for cardiovascular disorders | CPT/HCPCS: 80053; 80061 ==

== ENCOUNTER 2024-07-13 13:30 | Outpatient (CLI) | payer OTHER, SELFPAY ==
[2024-07-16 20:47] LABS: HPV Source Cervical/Vag; HPV, High Risk by TMA Detected
[2024-07-17 12:12] LABS: HPV Genotype 16 by TMA Not Detected; HPV Genotype 18/45 by TMA Not Detected; HPVG Source Cervical/Vag
== END 2024-07-13 13:31 | disposition home or self-care (01) ==
PROVIDERS: PCP Family Medicine; Visit Provider Family Medicine
DX: R31.9 Hematuria, unspecified (principal); Z12.4 Encounter for screening for malignant neoplasm of cervix; Z11.51 Encounter for screening for human papillomavirus (HPV)
CPT/HCPCS: 87624; 87625; 88141; 88142

== ENCOUNTER 2024-08-22 14:40 | Outpatient (CLI) | payer OTHER, SELFPAY ==
--- NOTE | 2024-08-22 15:00 | CRLHL7_ITS ---
For Patients: As a result of the Century Cures Act, medical imaging exams and procedure reports are released immediately into your electronic medical record. You may view this report before your referring provider. If you have questions, please contact your health care provider. BILATERAL SCREENING MAMMOGRAM WITH COMPUTER-AIDED DETECTION AND TOMOSYNTHESIS TECHNIQUE: CC and MLO views were obtained. These mammographic images have been obtained using full-field digital technique. These mammographic images were interpreted with the benefit of computer-aided detection. Breast Tomosynthesis was used in this interpretation. COMPARISON FILM: 05/27/23, 04/23/22. FINDINGS: There are scattered areas of fibroglandular density. IMPRESSION: There is no radiographic evidence for malignancy. ASSESSMENT: BI-RADS Category 1: Negative RECOMMENDATION: Routine screening mammogram in 1 year. A lay language report of this examination will be provided to the patient. Scott Garnett M.D. Diagnostic Radiologist [email or web address] SP/Dictated by: Scott Garnett MD @ 08/23/2024 9:11:00 AM (Electronically Signed)
== END 2024-08-22 14:41 | disposition home or self-care (01) ==
LOC: MAMMO 14:41
PROVIDERS: PCP Family Medicine; Visit Provider Family Medicine
DX: Z12.31 Encounter for screening mammogram for malignant neoplasm of breast (principal)
CPT/HCPCS: 77063; 77067